=== PATIENT | male | born 1955 | race Caucasian/White ===

== ENCOUNTER → 2017-06-29 | Outpatient (CLI) | payer MEDICARE ==
[~2017-06-29] MED LIST: ALEVE220 MG PO; AMOXICILLIN500 M2 PO; ASPIRIN325 M1 PO; COREG25 M1 PO; FLOMAX 0.4MG C0.4 MG PO; GLIMEPIRIDE 2MG2 MG PO; HYDROCODONE-APA1 TA1 PO; IMDUR30 MG PO; LISINOPRIL/HCTZ1 TA3 PO; LOVASTATIN40 MG PO; MELOXICAM15 MG PO; METFORMIN HCL1000 MG PO; OMEPRAZOLE20 MG PO; SEPTRA DS 800 M1 TAB PO
--- NOTE | 2017-06-29 12:08 | RADIOLOGY REPORT PS360 ---
ARTERIAL/[id number] NEUROPATHY ORDERING PHYSICIAN: MOODY ALCKEY APRN PATIENT AGE: 62 years TECHNIQUE: Segmental pressures obtained of both right and left leg. These are compared to brachial blood pressure to yield index at each level sampled including summary ANUSHKA. The data sheets from the procedure are available in PACS FINDINGS Rest study only performed today No prior studies available for comparison. Blood pressures reported are in millimeters mercury. RIGHT LEG ANUSHKA = 1.2. Brachial BP: 160 Thigh BP: 178 Calf BP: 187 Ankle PT: 190 Ankle DP : 188 Digit =162 LEFT LEG ANUSHKA = 1.0 Brachial BPD: 162 Thigh BP: 147 Calf BP: 163 Ankle PT:155 Ankle DP: 175 Digit = 170 Pulses and waveforms: Normal IMPRESSION: The ABIs as reported above are within normal limits. Waveforms and pulses are also unremarkable.
== END ==
LOC: RT 09:59
DX: I73.9 Peripheral vascular disease, unspecified (principal); E11.41 Type 2 diabetes mellitus with diabetic mononeuropathy